=== PATIENT | female | born 1980 | race Caucasian/White ===

== ENCOUNTER → 2018-11-23 | Outpatient (REF) | payer OTHER | LOC: M LAB REF 12:18 | PROVIDERS: ATTEND Nurse Practitioner Women's Health | DX: Z34.83 Encounter for supervision of other normal pregnancy, third trimester (principal); Z36.85 Encounter for antenatal screening for Streptococcus B ==

== ENCOUNTER 2021-03-06 18:08 | Emergency (ER) | payer OTHER ==
[~2021-03-06] VITALS: Ht 152.4 cm; Wt 61.0 kg
[2021-03-06] MEDS ORDERED: ZYRTTAB8 PO (18:20)
[2021-03-06] MEDS ORDERED: methylPREDNISolone 125MG 2ML VIAL IV ONE (20:05)
[2021-03-06] MEDS ORDERED: NS 1,000 ML IV ONE (20:05)
[2021-03-06] MEDS ORDERED: IPRATROPIUM 0.5MG/ALBUTEROL 2.5MG INH SOL UD 3ML (DUONEB) NEB ONE ×2 (20:05→22:05)
[2021-03-06 20:30] LABS: BASO # 0.1 10^3/uL (0.0-0.2); BASO % 0.5 % (0.0-1.0); EOS # 0.1 10^3/uL (0.0-0.5); HEMATOCRIT 41.2 % (36.0-47.0); HEMOGLOBIN 13.6 g/dl (12.0-15.5); LYMPH # 1.9 10^3/uL (1.5-5.0); LYMPH % 15.4 % (24.0-44.0); MEAN CORPUSCULAR HEMOGLOBIN 29.9 pg (27.0-33.0); MEAN CORPUSCULAR VOLUME 90.5 fl (80.0-96.0); MONO # 0.4 10^3/uL (0.0-0.8); MONO % 3.4 % (2.0-8.0); NEUTROPHILS % 79.4 % (36.0-66.0); PLATELET COUNT, AUTOMATED 246 10^3/uL (150-450); RED BLOOD COUNT 4.55 10^6/uL (4.00-5.40); WHITE BLOOD COUNT 12.6 10^3/uL (4.0-10.0)
[2021-03-06 20:40] LABS: BLOOD UREA NITROGEN 14 MG/DL (7-18); CALCIUM LEVEL 10.1 MG/DL (8.5-10.1); CARBON DIOXIDE LEVEL 30 MEQ/L (21-32); CHLORIDE LEVEL 105 MEQ/L (98-107); CK-MB VALUE MASS < 1.0 NG/ML (<3.6); CPK CREATINE PHOSPHOKINASE 56 U/L (26-192); CREATININE FOR GFR 0.71 MG/DL (0.55-1.30); GLOMERULAR FILTRATION RATE > 60.0 (>58); GLUCOSE, FASTING 101 MG/DL (70-100); LIPASE 130 U/L (73-393); MB/CK RELATIVE INDEX 1.79 (< OR =4); NT-PRO BNP 121 PG/ML (<125); POTASSIUM SERUM 3.8 MEQ/L (3.5-5.1); SODIUM LEVEL 139 MEQ/L (136-145); TROPONIN I < 0.02 NG/ML (< 0.10)
--- NOTE | 2021-03-06 20:55 | ECGEPIP ---
[facility] - ED Test Date: 2021-03-06 Pat Name: IMELDA AVITIA Department: Room: - Gender: Female Director Of Employee Development: Abelardo LONGORIA : 1980 Requested By: NOMI KAPOOR Order Number: [id number] Reading MD: Idalia Atkins Measurements Intervals [place] Rate: 104 P: 52 [place]: 152 QRS: -5 QRSD: 86 T: 31 QT: 344 QTc: 452 Interpretive Statements Sinus tachycardia Possible Left atrial enlargement Septal infarct , age undetermined NSTTW abnormalities No prior Electronically Signed on 03-06-2021 20:54:59 EDT by Idalia Atkins
--- NOTE | 2021-03-06 21:16 | REPVR ---
PROCEDURE INFORMATION: Exam: XR Chest Exam date and time: 03/06/2021 8:28 PM Age: 40 years old Clinical indication: Other: Chest pain TECHNIQUE: Imaging protocol: XR of the chest. Views: 1 view. COMPARISON: No relevant prior studies available. FINDINGS: Lungs: Degree of lung inflation is normal. No evidence of pulmonary edema. No focal consolidation or parenchymal lung mass. Pleural spaces: No pleural effusion or pneumothorax. Heart/Mediastinum: Cardiac silhouette appears normal. No adenopathy or hilar mass. Bones/joints: Osseous structures show no concerning abnormality. IMPRESSION: No acute or focal cardiopulmonary process. Electronically signed by: Luis Melchor On 03/06/2021 21:15:34 PM
[2021-03-06 21:30] LABS: INR 0.98; PROTHROMBIN TIME 13.2 SECONDS (12.5-14.3)
[2021-03-06 21:38] LABS: D-DIMER QUANT < 270 ng/ml (<500)
[2021-03-06] MEDS ORDERED: PRED5TA PO (21:58)
[2021-03-06] MEDS ORDERED: VENTAER INH (21:58)
[2021-03-06 22:15] VITALS: BP 125/58
== END 2021-03-06 22:50 | disposition home or self-care (01) ==
LOC: M ED 18:08
DX: J45.901 Unspecified asthma with (acute) exacerbation (principal); Z79.51 Long term (current) use of inhaled steroids
CPT/HCPCS: 71045; 80048; 82550; 82553; 83690; 83880; 84484; 85025; 85379; 85610; 93005; 93041; 94640; 94760; 96361; 96374; 99285; J2930

== ENCOUNTER → 2022-06-23 | Outpatient (CLI) | payer OTHER ==
[~2022-06-23] MED LIST: PRED5TA PO; VENTAER INH; ZYRTTAB8 PO
== END ==
LOC: M WHC 14:06
PROVIDERS: ATTEND Registered Nurse
DX: Z12.31 Encounter for screening mammogram for malignant neoplasm of breast (principal)
CPT/HCPCS: 76642; 77066; G0279

== ENCOUNTER → 2023-10-16 | Outpatient (CLI) | payer OTHER | LOC: M WHC 10:40 | PROVIDERS: ATTEND Nurse Practitioner Family | DX: Z12.31 Encounter for screening mammogram for malignant neoplasm of breast (principal) ==

== ENCOUNTER → 2023-10-16 | Outpatient (REF) | payer OTHER | LOC: M SFHCWAGY 17:29 | PROVIDERS: ATTEND Nurse Practitioner Family | DX: Z12.4 Encounter for screening for malignant neoplasm of cervix (principal) | CPT/HCPCS: 87624; G0123 ==

== ENCOUNTER → 2024-05-20 | Outpatient (REF) | payer OTHER ==
[2024-05-20 18:31] LABS: C REACTIVE PROTEIN QUANTITATIV < 0.40 MG/DL (<1.0)
[2024-05-20 18:36] LABS: RHEUMATOID FACTOR QUANT 6.6 IU/ML (<14)
== END ==
LOC: M LAB REF 16:21
PROVIDERS: ATTEND Nurse Practitioner Family
DX: Z00.01 Encounter for general adult medical examination with abnormal findings (principal)